=== PATIENT | male | born 1985 | race African-American/Black ===

== ENCOUNTER 2022-06-16 02:25 | Emergency (ER) | payer SELFPAY ==
[~2022-06-16] VITALS: Ht 188 cm; Wt 72.6 kg
[2022-06-16 03:58] VITALS: BP 137/75
[2022-06-16] MEDS ORDERED: CYCLOBENZAPRINE 10 MG TABLET PO ONE (04:00)
[2022-06-16] MEDS ORDERED: IBUPROFEN 400 MG TABLET PO ONE (04:00)
[2022-06-16] MEDS ORDERED: IBUP-1957 PO (04:01)
[2022-06-16] MEDS ORDERED: CYCL10TA9 PO (04:01)
[2022-06-16] MEDS ORDERED: IBUPROFEN 600 MG TABLET ONE (04:04)
[2022-06-16] MEDS ORDERED: CYCLOBENZAPRINE 10 MG TABLET ONE (04:04)
--- NOTE | 2022-06-16 04:08 | NUR ---
Patient discharged to home in stable condition. Written and verbal after care instructions given. Patient verbalizes understanding of instruction. Pt ambulatory with a steady gait
== END 2022-06-16 04:10 | disposition home or self-care (01) ==
LOC: ER 02:28
DX: S33.5XXA Sprain of ligaments of lumbar spine, initial encounter (principal); X58.XXXA Exposure to other specified factors, initial encounter; Y93.89 Activity, other specified; Y92.89 Other specified places as the place of occurrence of the external cause; Y99.8 Other external cause status